=== PATIENT | male | born 1995 | race Caucasian/White ===

== ENCOUNTER 2018-02-07 13:25 | Emergency (ER) | END 2018-02-07 14:48 | disposition home or self-care (01) ==

== ENCOUNTER 2018-10-30 13:13 | Emergency (ER) | payer OTHER ==
[~2018-10-30] VITALS: Ht 147.3 cm; Wt 82.0 kg
[~2018-10-30 13:13] MED LIST: BACTRIM PO; CEPH-443 PO
[2018-10-30 13:24] VITALS: BP 157/96; PULSE 118; RESP 18; Ht 147.3 cm; Wt 82.0 kg
--- NOTE | 2018-10-30 14:27 | ERD ---
ER Documentation Chief Complaint Chief Complaint needs rx for self catheter tubing, unable to get from PMD HPI 23-year-old male, wheelchair bounded, who performs self-catheterization, prese nts to the emergency department, requesting a refill for his urinary catheters. Otherwise, no complaints at this time, denies abdominal pain, no fever, no chills, no urinary problems. ROS All systems reviewed and are negative except as per history of present illness. Medications Home Meds Active Scripts Catheter Male,External (Everyday Male Catheter) 1 Each Each, EACH , #180 Prov:ADITHYA CHENG MD 10/30/18 Trimethoprim-Sulfamethoxazole* (Bactrim*) 400-80 Mg Tab, 1 TAB PO BID for 7 Days, #14 TAB Prov:CLAIRE SOTO 02/07/18 Cephalexin* (Keflex*) 500 Mg Capsule, 500 MG PO BID for 7 Days, CAP Prov:BRITTANY,CLAIRE C 02/07/18 Allergies Allergies: Coded Allergies: latex (Verified Allergy, 10/01/12) RASH PMhx/Soc History of Surgery: Yes (SHUNT, URETEROSTOMY, BIOPSY, ) Anesthesia Reaction: No Hx Neurological Disorder: Yes (WHEELCHAIR BOUND) Hx Respiratory Disorders: No Hx Cardiac Disorders: No Hx Psychiatric Problems: No Hx Miscellaneous Medical Probl: No Hx Alcohol Use: No Hx Substance Use: No Hx Tobacco Use: No FmHx Family History: No diabetes, No coronary disease Physical Exam Vitals Vital Signs Date Temp Pulse Resp B/P (MAP) Pulse Ox O2 O2 Flow FiO2 Time Delivery Rate 10/30/18 99.4 118 18 157/96 95 13:24 (116) Physical Exam Const: No acute distress Head: Atraumatic Eyes: Normal Conjunctiva ENT: Normal External Ears, Nose and Mouth. Neck: Full range of motion. No meningismus. Resp: Clear to auscultation bilaterally Cardio: Regular rate and rhythm, no murmurs Abd: Soft, non tender, non distended. Normal bowel sounds Skin: No petechiae or rashes Back: No midline or flank tenderness Ext: No cyanosis, or edema Neur: Awake and alert Psych: Normal Mood and Affect Procedures/MDM Vital signs stable, physical examination unremarkable, no acute distress. The patient has a diagnosis of neurogenic bladder and today is requesting a refill for daily urinary catheters. During the ED course the patient remained stable, no new complaints. Treatment options discussed with the patient who agrees with management. Follow up with the primary care provider in the next 48h has been recommended. If symptoms persist, worsen or new symptoms develop, then patient should return to the ED immediately. Instructions explained and given directly by me to the patient with kianna owledgment and demonstrated understanding. Disclaimer: Inadvertent spelling and grammatical errors are likely due to EHR/dictation software use and do not reflect on the overall quality of patient care. Also, please note that the electronic time recorded on this note does not necessarily reflect the actual time of the patient encounter. Departure Diagnosis: Primary Impression: Encounter for medication refill Additional Impression: Self-catheterizes urinary bladder Condition: Stable Additional Instructions: Thank you very much for allowing us to participate in your care. Your health and safety is our top priority at [facility]. The evaluation in the emergency department has been done to rule out an acute emergency. Chronic, [id number] conditions may have not been evaluated; therefore, you need to follow up with a primary care provider in the next 48h. If symptoms persist, worsen or new symptoms develop, then patient should return to the ED immediately. Call your primary care doctor TOMORROW for an appointment during the next 2-4 days and bring all the information provided. Have prescriptions filled and follow precisely the directions on the label. If the symptoms get worse and your provider is unavailable, return to the Emergency Department immediately. ADITHYA CHENG MD Oct 30, 2018 14:27
[2018-10-30] MEDS ORDERED: [UNRECOGNIZED DRUG - CODE] MC (14:28)
== END 2018-10-30 14:45 | disposition home or self-care (01) ==
LOC: FTE 13:13
DX: N31.9 Neuromuscular dysfunction of bladder, unspecified (principal)
CPT/HCPCS: 99281